=== PATIENT | male | born 1980 | race Hispanic/Latino ===

== ENCOUNTER 2018-05-19 12:29 | Inpatient (IN) | payer SELFPAY ==
[~2018-05-19] VITALS: Ht 185.4 cm; Wt 85.0 kg
[~2018-05-19 12:29] MED LIST: BACTRIM DS1 TAB PO; CIPROFLOXACN500 MG PO; LORTAB 5-325 MG1 TAB PO; NO MEDS
[2018-05-19 13:24] LABS: HEMATOCRIT 36.5 % (39.0-50.0); IMMATURE GRANULOCYTES 0.5 % (0.0-5.0); MEAN CELL VOLUME 89.2 fL CALC (80.0-100.0); MEAN CORPUSCULAR HGB 29.3 pG CALC (26.0-32.0); MEAN CORPUSCULAR HGB CONC 32.9 g/L CALC (32.0-36.0); NEUT# 6.54 thou/uL (1.82-7.42); RED BLOOD COUNT 4.09 mill/uL (4.70-6.10); RED CELL DISTRI WIDTH 13.3 % (11.5-15.5)
[2018-05-19 13:28] LABS: INTERNATIONAL NORMALIZED RATIO 1.1 RATIO (0.7-1.3); PROTHROMBIN TIME 11.4 SECONDS (9.0-12.5)
[2018-05-19 13:30] LABS: ALBUMIN 3.9 g/dL (3.2-5.0); ALKALINE PHOSPHATASE 61 u/l (38-126); ANION GAP 14 (6-22 (CALC)); BILIRUBIN, TOTAL 0.6 mg/dL (0.0-1.4); BUN 10 mg/dL (9-20); BUN/CREATININE RATIO 13 (12-20 (CALC)); CARBON DIOXIDE 29 mmol/l (22-30); CHLORIDE 95 mmol/l (95-108); CREATININE 0.8 mg/dL (0.7-1.3); ETHYL ALCOHOL 0 mg/dl (0-30); GFR > 60 ML/MIN (>=60 (CALC)); GFR FOR AFR.AMER. > 60 ML/MIN (>=60 (CALC)); POTASSIUM 3.9 mmol/l (3.5-5.1); SGOT/AST 37 u/l (17-59); SODIUM 134 mmol/l (137-146); TOTAL PROTEIN 7.4 g/dL (6.3-8.2)
[2018-05-19 14:54] LABS: URINE BLOOD DIPSTICK NEGATIVE (NEGATIVE); URINE COLOR YELLOW; URINE GLUCOSE - DIPSTICK NEGATIVE (NEGATIVE); URINE KETONE TRACE mg/dL (NEGATIVE); URINE LEUK ESTERASE NEGATIVE (NEGATIVE); URINE NITRITE - DIPSTICK NEGATIVE (Negative); URINE PH 6.5 (4.5-8.0); URINE PROTEIN - DIPSTICK NEGATIVE (NEG-TRACE); URINE UROBILINOGEN - DIPSTICK >=8.0 E.U./dL (0.2)
[2018-05-19 14:58] LABS: BARBITURATES NEGATIVE (NEGATIVE); COCAINE NEGATIVE (NEGATIVE); METHADONE NEGATIVE (NEGATIVE); OXCYCODONE POSITIVE (NEGATIVE); TETRAHYDROCANNABIONOL POSITIVE (NEGATIVE); TRICYLIC ANTIDEPRESSANTS NEGATIVE (NEGATIVE)
[2018-05-19 15:01] LABS: URINE BILIRUBIN - DIPSTICK NEGATIVE (NEGATIVE)
[2018-05-19 16:40] VITALS: BP 127/70
[2018-05-19 19:40] VITALS: BP 103/54
[2018-05-20 04:20] VITALS: BP 127/62
[2018-05-20 04:51] LABS: HEMATOCRIT 35.4 % (39.0-50.0); HEMOGLOBIN 11.6 g/dl (14.0-18.0); IMMATURE GRANULOCYTES 0.4 % (0.0-5.0); MEAN CELL VOLUME 89.4 fL CALC (80.0-100.0); MEAN CORPUSCULAR HGB 29.3 pG CALC (26.0-32.0); MEAN CORPUSCULAR HGB CONC 32.8 g/L CALC (32.0-36.0); NEUT# 4.25 thou/uL (1.82-7.42); RED BLOOD COUNT 3.96 mill/uL (4.70-6.10); RED CELL DISTRI WIDTH 13.5 % (11.5-15.5)
[2018-05-20 05:10] LABS: ALKALINE PHOSPHATASE 89 u/l (38-126); AMYLASE < 30 u/l (30-110); ANION GAP 11 (6-22 (CALC)); BILIRUBIN, TOTAL 0.7 mg/dL (0.0-1.4); BUN 8 mg/dL (9-20); BUN/CREATININE RATIO 11 (12-20 (CALC)); CARBON DIOXIDE 29 mmol/l (22-30); CHLORIDE 102 mmol/l (95-108); CREATININE 0.7 mg/dL (0.7-1.3); GFR > 60 ML/MIN (>=60 (CALC)); GFR FOR AFR.AMER. > 60 ML/MIN (>=60 (CALC)); LIPASE 53 u/l (23-300); MAGNESIUM 1.8 mg/dL (1.6-2.3); POTASSIUM 3.4 mmol/l (3.5-5.1); SGOT/AST 60 u/l (17-59); SODIUM 138 mmol/l (137-146)
[2018-05-20 05:15] LABS: ALBUMIN 3.1 g/dL (3.2-5.0)
[2018-05-20 08:30] VITALS: BP 129/74
[2018-05-20 15:30] VITALS: BP 120/77
[2018-05-20 19:35] VITALS: BP 133/78
[2018-05-21 05:08] LABS: HEMATOCRIT 33.9 % (39.0-50.0); HEMOGLOBIN 11.3 g/dl (14.0-18.0); IMMATURE GRANULOCYTES 0.5 % (0.0-5.0); MEAN CELL VOLUME 87.8 fL CALC (80.0-100.0); MEAN CORPUSCULAR HGB 29.3 pG CALC (26.0-32.0); MEAN CORPUSCULAR HGB CONC 33.3 g/L CALC (32.0-36.0); NEUT# 5.59 thou/uL (1.82-7.42); RED BLOOD COUNT 3.86 mill/uL (4.70-6.10); RED CELL DISTRI WIDTH 13.4 % (11.5-15.5)
[2018-05-21 05:31] LABS: ALBUMIN 2.9 g/dL (3.2-5.0); ALKALINE PHOSPHATASE 120 u/l (38-126); ANION GAP 11 (6-22 (CALC)); BILIRUBIN, TOTAL 0.3 mg/dL (0.0-1.4); BUN 8 mg/dL (9-20); BUN/CREATININE RATIO 13 (12-20 (CALC)); CARBON DIOXIDE 26 mmol/l (22-30); CHLORIDE 108 mmol/l (95-108); CREATININE 0.6 mg/dL (0.7-1.3); GFR > 60 ML/MIN (>=60 (CALC)); GFR FOR AFR.AMER. > 60 ML/MIN (>=60 (CALC)); MAGNESIUM 1.7 mg/dL (1.6-2.3); POTASSIUM 3.7 mmol/l (3.5-5.1); SGOT/AST 54 u/l (17-59); SODIUM 141 mmol/l (137-146); TOTAL PROTEIN 5.7 g/dL (6.3-8.2)
[2018-05-21 08:33] VITALS: BP 138/86
[2018-05-21 17:00] VITALS: BP 152/62
[2018-05-21 19:00] VITALS: BP 149/83
[2018-05-22 03:10] VITALS: BP 149/93
[2018-05-22 05:47] LABS: HEMATOCRIT 36.8 % (39.0-50.0); HEMOGLOBIN 12.1 g/dl (14.0-18.0); IMMATURE GRANULOCYTES 0.5 % (0.0-5.0); MEAN CELL VOLUME 88.2 fL CALC (80.0-100.0); MEAN CORPUSCULAR HGB CONC 32.9 g/L CALC (32.0-36.0); NEUT# 5.95 thou/uL (1.82-7.42); RED BLOOD COUNT 4.17 mill/uL (4.70-6.10); RED CELL DISTRI WIDTH 13.6 % (11.5-15.5)
[2018-05-22 06:06] LABS: ALBUMIN 3.1 g/dL (3.2-5.0); ALKALINE PHOSPHATASE 101 u/l (38-126); AMYLASE 42 u/l (30-110); BILIRUBIN, TOTAL 0.2 mg/dL (0.0-1.4); BUN 8 mg/dL (9-20); BUN/CREATININE RATIO 14 (12-20 (CALC)); CARBON DIOXIDE 27 mmol/l (22-30); CREATININE 0.6 mg/dL (0.7-1.3); GFR > 60 ML/MIN (>=60 (CALC)); GFR FOR AFR.AMER. > 60 ML/MIN (>=60 (CALC)); LIPASE 116 u/l (23-300); MAGNESIUM 1.6 mg/dL (1.6-2.3); POTASSIUM 3.5 mmol/l (3.5-5.1); SGOT/AST 28 u/l (17-59); SODIUM 142 mmol/l (137-146); TOTAL PROTEIN 6.1 g/dL (6.3-8.2)
[2018-05-22 06:07] LABS: ANION GAP 13 (6-22 (CALC)); CHLORIDE 106 mmol/l (95-108)
[2018-05-22 07:35] VITALS: BP 152/78
== END 2018-05-22 14:35 | disposition short-term general hospital (02) | DRG 871 ==
LOC: ED 12:29 → ED-I 13:39 → ED 13:50 → MS2 13:51
PROVIDERS: Family Medicine; ADMIT Internal Medicine Nephrology; ATTEND Internal Medicine Nephrology
DX: A41.01 Sepsis due to Methicillin susceptible Staphylococcus aureus (principal); I33.0 Acute and subacute infective endocarditis; R65.20 Severe sepsis without septic shock; I10 Essential (primary) hypertension; F11.10 Opioid abuse, uncomplicated; F17.210 Nicotine dependence, cigarettes, uncomplicated; I95.9 Hypotension, unspecified; I08.3 Combined rheumatic disorders of mitral, aortic and tricuspid valves
CPT/HCPCS: J1650; J2060; J3370

== ENCOUNTER 2018-08-30 22:59 | Emergency (ER) | payer SELFPAY ==
[~2018-08-30] VITALS: Ht 185.4 cm; Wt 104.0 kg
[2018-08-31] MEDS ORDERED: KEFLEX500 M1 PO (00:53)
[2018-08-31 01:15] VITALS: BP 130/78
== END 2018-08-31 01:15 | disposition home or self-care (01) | DRG 603 ==
LOC: ED 22:59
DX: L03.113 Cellulitis of right upper limb (principal); I10 Essential (primary) hypertension; F17.210 Nicotine dependence, cigarettes, uncomplicated

== ENCOUNTER 2019-01-02 15:28 | Emergency (ER) | payer SELFPAY ==
[~2019-01-02] VITALS: Ht 185.4 cm; Wt 91.0 kg
[~2019-01-02 15:28] MED LIST changes: +KEFLEX500 M1 PO
[2019-01-02 16:36] LABS: BUN 15 mg/dL (9-20); BUN/CREATININE RATIO 20 (12-20 (CALC)); CARBON DIOXIDE 28 mmol/l (22-30); CREATININE 0.7 mg/dL (0.7-1.3); GFR > 60 ML/MIN (>=60 (CALC)); GFR FOR AFR.AMER. > 60 ML/MIN (>=60 (CALC))
[2019-01-02 16:44] LABS: ANION GAP 17 (6-22 (CALC)); CHLORIDE 91 mmol/l (95-108); POTASSIUM 5.1 mmol/l (3.5-5.1); SODIUM 131 mmol/l (137-146)
[2019-01-02 16:57] LABS: HEMATOCRIT 32.2 % (39.0-50.0); HEMOGLOBIN 10.5 g/dl (14.0-18.0); MEAN CELL VOLUME 84.7 fL CALC (80.0-100.0); MEAN CORPUSCULAR HGB 27.6 pG CALC (26.0-32.0); MEAN CORPUSCULAR HGB CONC 32.6 g/L CALC (32.0-36.0); NEUT# 17.2 thou/uL (1.82-7.42); RED BLOOD COUNT 3.8 mill/uL (4.70-6.10); RED CELL DISTRI WIDTH 13.8 % (11.5-15.5)
[2019-01-02 17:45] LABS: BARBITURATES NEGATIVE (NEGATIVE); COCAINE NEGATIVE (NEGATIVE); METHADONE NEGATIVE (NEGATIVE); OXCYCODONE POSITIVE (NEGATIVE); TETRAHYDROCANNABIONOL NEGATIVE (NEGATIVE); TRICYLIC ANTIDEPRESSANTS NEGATIVE (NEGATIVE)
[2019-01-02 20:57] VITALS: BP 108/78
--- NOTE | 2019-01-04 09:07 | NUR ---
Preliminary blood culture results of 2/2 sets growing gram positive cocci called to nurse Karley at [facility]. Will call final results when available.
== END 2019-01-02 21:07 | disposition short-term general hospital (02) | DRG 552 ==
LOC: ED 15:28
PROVIDERS: Family Medicine
PROC: 009U3ZX Drainage of Spinal Canal, Percutaneous Approach, Diagnostic (ICD-10-PCS; principal; 2019-01-02)
DX: M54.2 Cervicalgia (principal); R51 Headache; R50.9 Fever, unspecified; J98.4 Other disorders of lung; I10 Essential (primary) hypertension; F17.210 Nicotine dependence, cigarettes, uncomplicated; F19.90 Other psychoactive substance use, unspecified, uncomplicated
CPT/HCPCS: Q9967

== ENCOUNTER 2019-06-23 | Emergency (ER) | payer SELFPAY | END 2019-06-23 19:30 | disposition home or self-care (01) | DRG 605 | DX: S61.215A Laceration without foreign body of left ring finger without damage to nail, initial encounter (principal); I10 Essential (primary) hypertension; F17.210 Nicotine dependence, cigarettes, uncomplicated; W54.1XXA Struck by dog, initial encounter ==

== ENCOUNTER 2020-09-16 13:43 | Observation (INO) | payer SELFPAY ==
[~2020-09-16] VITALS: Ht 185.4 cm; Wt 85.0 kg
--- NOTE | 2020-09-16 14:02 | NUR ---
CARRIED OVER BY EMS
[2020-09-16 14:14] LABS: IMMATURE GRANULOCYTES 0.2 % (0.0-5.0); MEAN CORPUSCULAR HGB 27.8 pG CALC (26.0-32.0); MEAN CORPUSCULAR HGB CONC 30.5 g/dL CAL (32.0-36.0); NEUT# 2.54 thou/uL (1.82-7.42); RED BLOOD COUNT 4.31 mill/uL (4.70-6.10); RED CELL DISTRI WIDTH 13.8 % (11.5-15.5)
[2020-09-16 14:17] LABS: HEMATOCRIT 39.4 % (39.0-50.0); MEAN CELL VOLUME 91.4 fL CALC (80.0-100.0)
[2020-09-16 14:20] LABS: URINE BILIRUBIN - DIPSTICK NEGATIVE (NEGATIVE); URINE BLOOD DIPSTICK NEGATIVE (NEGATIVE); URINE COLOR YELLOW; URINE GLUCOSE - DIPSTICK NEGATIVE (NEGATIVE); URINE KETONE NEGATIVE (NEGATIVE); URINE LEUK ESTERASE NEGATIVE (NEGATIVE); URINE PH 7.5 (4.5-8.0); URINE PROTEIN - DIPSTICK NEGATIVE (NEG-TRACE); URINE UROBILINOGEN - DIPSTICK 0.2 E.U./dL (0.2)
[2020-09-16 14:21] LABS: URINE NITRITE - DIPSTICK NEGATIVE (Negative)
[2020-09-16 14:34] LABS: ALBUMIN 3.6 g/dL (3.2-5.0); ALKALINE PHOSPHATASE 53 u/l (38-126); BUN 9 mg/dL (9-20); BUN/CREATININE RATIO 9 (12-20 (CALC)); CARBON DIOXIDE 26 mmol/l (22-30); CREATININE 1.1 mg/dL (0.7-1.3); GFR > 60 ML/MIN (>=60 (CALC)); GFR FOR AFR.AMER. > 60 ML/MIN (>=60 (CALC)); SODIUM 136 mmol/l (137-146); TOTAL PROTEIN 7.2 g/dL (6.3-8.2)
[2020-09-16 14:35] LABS: ANION GAP 11 (6-22 (CALC)); BILIRUBIN, TOTAL 0.3 mg/dL (0.0-1.4); CHLORIDE 103 mmol/l (95-108); POTASSIUM 3.9 mmol/l (3.5-5.1)
[2020-09-16 14:36] LABS: SGOT/AST 70 u/l (17-59)
[2020-09-16 14:46] LABS: MYOGLOBIN 68 ng/mL (0 - 121)
--- NOTE | 2020-09-16 15:02 | NUR ---
PATIENT RESTING AWAITING DISPOSITION. PATIENT CALM BUT AROUSABLE AND MAKES UNINTELLIGBLE SOUNDS THEN IMMEDIATELY FALL INTO A OBTUNDED STATE. NO TIFIED OF PATIENT STATUS
--- NOTE | 2020-09-16 15:15 | NUR ---
PATIENT AWAKE ALERT BUT STILL DROWSY. PATIENT ANSWERING QUESTIONS AND DOES NOT REMEMBER EVENTS PRIOR TO WAKING UP IN THE ER. RESTRAINTS REMOVED AND MD NOTIFIED OF PATIENTS STATUS
--- NOTE | 2020-09-16 16:15 | NUR ---
Patient resting awaiting disposition. patient denies any pain or discomfort at this time
--- NOTE | 2020-09-16 17:09 | NUR ---
report called to ray in icu
[2020-09-16 17:15] VITALS: BP 99/54
--- NOTE | 2020-09-16 17:15 | NUR ---
Patient transported to icu
--- NOTE | 2020-09-16 17:30 | NUR ---
PATIENT ARRIVED FROM ED AT THIS TIME. THIS NURSE WENT TO GO AND ADMIT PATIENT AND PATIENT STATED "I'M NOT STAYING HERE I WANT TO LEAVE". PATIENT REQUESTED TO MAKE A PHONE CALL AT THIS TIME AND PATIENT'S FAMILY REQUESTED TO SPEAK TO THIS NURSE AND FAMILY MEMBER STATED THAT SHE WOULD BE HERE IN 10 MINS. TO PICK PATIENT UP AND TO GET HIM READY". ADVISED PATIENT OF HIS RIGHTS TO LEAVE HOWEVER HE WOULD NEED TO SIGN AN AMA FORM AND HE STATED THAT IS FINE AND PATIENT DID SIGN FORM PATIENT WAS ADVISED ON THE RISK AND BENEFITS AND PATINET VERBALIZED UNDERSTANDING AND STATE "I AM LEAVING" PATIENTS IV REMOVED AT THIS TIME AND PATIENT WAS RELEASE. DR. PAGE CALLED AND NOTIFIED OF PATIENTS DEPARTURE.
--- NOTE | 2020-09-16 17:35 | NUR ---
Patient decides to leave AMA. Multiple attempts made to ecourage patient to remain here for continued treatment. Explained to patient all risks of leaving against medical advice including . Pt verbalized understanding of all risks. Pt also encouraged to return to [facility] at any time, especially if symptoms continue or become worse. Pt verbalized understanding. SEE PREVIOUS NOTE.
--- NOTE | 2020-09-18 08:34 | NUR ---
PRELIM BLOOD CX RESULTS SHOW GRAM POSITIVE COCCI IN 2/4 VIALS, SAME SET. REPORTED TO DR LOPEZ. TRIED TO CALL PT, WAS TOLD WRONG NUMBER...ITS THE SAME NUMBER FOR NEXT OF [facility]IN [facility]. WILL F/U WITH FINAL RESULTS
--- NOTE | 2020-09-19 13:47 | NUR ---
FINAL BLOOD CULTURE RESULTS SHOW STAPHYLOCOCCUS HOMINIS IN 2/4 VIALS (SAME SET). PATIENT LEFT AMA AND PHONE NUMBER ON FILE DOES NOT WORK.
== END 2020-09-16 17:35 | disposition left against medical advice (07) | DRG 894 ==
LOC: ED 13:43 → ED-I 16:00 → ED 16:16 → ICU 16:17
PROVIDERS: Emergency Medicine; ADMIT Internal Medicine; ATTEND Internal Medicine
DX: F16.10 Hallucinogen abuse, uncomplicated (principal); R73.9 Hyperglycemia, unspecified; I10 Essential (primary) hypertension; F17.200 Nicotine dependence, unspecified, uncomplicated; Z78.1 Physical restraint status; Z20.822 Contact with and (suspected) exposure to COVID-19

== ENCOUNTER 2020-09-23 19:36 | Emergency (ER) | payer SELFPAY ==
[~2020-09-23] VITALS: Ht 185.4 cm; Wt 100.0 kg
[2020-09-23 20:39] LABS: HEMATOCRIT 41.8 % (39.0-50.0); HEMOGLOBIN 13.4 g/dl (14.0-18.0); IMMATURE GRANULOCYTES 3.4 % (0.0-5.0); MEAN CELL VOLUME 86.5 fL CALC (80.0-100.0); MEAN CORPUSCULAR HGB 27.7 pG CALC (26.0-32.0); MEAN CORPUSCULAR HGB CONC 32.1 g/dL CAL (32.0-36.0); NEUT# 15.94 thou/uL (1.82-7.42); RED BLOOD COUNT 4.83 mill/uL (4.70-6.10); RED CELL DISTRI WIDTH 13.6 % (11.5-15.5)
[2020-09-23 20:53] LABS: URINE BLOOD DIPSTICK NEGATIVE (NEGATIVE); URINE COLOR YELLOW; URINE GLUCOSE - DIPSTICK NEGATIVE (NEGATIVE); URINE KETONE NEGATIVE (NEGATIVE); URINE LEUK ESTERASE NEGATIVE (NEGATIVE); URINE PH 5.5 (4.5-8.0); URINE PROTEIN - DIPSTICK 100 mg/dL (NEG-TRACE); URINE SPECIFIC GRAVITY >=1.030
[2020-09-23 20:55] LABS: URINE BILIRUBIN - DIPSTICK SMALL (NEGATIVE); URINE NITRITE - DIPSTICK NEGATIVE (Negative)
[2020-09-23 20:58] LABS: ALBUMIN 3.3 g/dL (3.2-5.0); ANION GAP 15 (6-22 (CALC)); BUN 15 mg/dL (9-20); BUN/CREATININE RATIO 19 (12-20 (CALC)); CARBON DIOXIDE 29 mmol/l (22-30); CHLORIDE 92 mmol/l (95-108); CREATININE 0.8 mg/dL (0.7-1.3); GFR > 60 ML/MIN (>=60 (CALC)); GFR FOR AFR.AMER. > 60 ML/MIN (>=60 (CALC)); POTASSIUM 4.6 mmol/l (3.5-5.1); SGOT/AST 28 u/l (17-59); SODIUM 132 mmol/l (137-146)
[2020-09-23 21:02] LABS: ALKALINE PHOSPHATASE 107 u/l (38-126); BILIRUBIN, TOTAL 0.8 mg/dL (0.0-1.4)
[2020-09-24 01:26] VITALS: BP 169/76
--- NOTE | 2020-09-25 07:17 | NUR ---
PRELIMINARY CULTURE RESULTS CALLED TO [facility] AND FAXED TO [phone]
== END 2020-09-24 01:26 | disposition short-term general hospital (02) | DRG 176 ==
LOC: ED 19:36
PROVIDERS: Emergency Medicine
DX: I26.90 Septic pulmonary embolism without acute cor pulmonale (principal); L02.213 Cutaneous abscess of chest wall; I10 Essential (primary) hypertension; F17.200 Nicotine dependence, unspecified, uncomplicated; F19.10 Other psychoactive substance abuse, uncomplicated

== ENCOUNTER 2021-02-26 19:31 | Observation (INO) | payer OTHER ==
[~2021-02-26] VITALS: Ht 185.4 cm; Wt 90.5 kg
--- NOTE | 2021-02-26 20:22 | NUR ---
PT AMBULATORY TO ROOM 3 FOR TRIAGE.
[2021-02-26 22:06] LABS: IMMATURE GRANULOCYTES 0.7 % (0.0-5.0); MEAN CORPUSCULAR HGB CONC 33.3 g/dL CAL (32.0-36.0); NEUT# 9.95 thou/uL (1.82-7.42); RED BLOOD COUNT 3.71 mill/uL (4.70-6.10); RED CELL DISTRI WIDTH 15.4 % (11.5-15.5)
[2021-02-26 22:23] LABS: ALKALINE PHOSPHATASE 107 u/l (38-126); ANION GAP 12 (6-22 (CALC)); BUN 17 mg/dL (9-20); BUN/CREATININE RATIO 14 (12-20 (CALC)); CARBON DIOXIDE 27 mmol/l (22-30); CHLORIDE 94 mmol/l (95-108); CREATININE 1.3 mg/dL (0.7-1.3); ETHYL ALCOHOL 0 mg/dl (0-30); GFR > 60 ML/MIN (>=60 (CALC)); GFR FOR AFR.AMER. > 60 ML/MIN (>=60 (CALC)); MEAN CELL VOLUME 80.9 fL CALC (80.0-100.0); SGOT/AST 28 u/l (17-59); SODIUM 129 mmol/l (137-146); TOTAL PROTEIN 6.6 g/dL (6.3-8.2)
[2021-02-26 22:26] LABS: POTASSIUM 3.6 mmol/l (3.5-5.1)
--- NOTE | 2021-02-27 03:03 | NUR ---
PT RESTING. STATES HE FEELS MUCH BETTER. NAD.
--- NOTE | 2021-02-27 03:03 | NUR ---
REPORT TO SAPNA/NURSE/MED-SURG
--- NOTE | 2021-02-27 03:11 | NUR ---
TO FLOOR VIA W/C. BELONGINGS LIST COMPLETED.
[2021-02-27 03:13] VITALS: BP 74/39
--- NOTE | 2021-02-27 03:13 | NUR ---
PATIENT ADMITTED TO [facility] VIA TO ROOM 274. TRANSFERRED TO ROOM BED WITH SUPERVISION. ASSESSMENT DONE AT THIS TIME. PATIENT ALERT AND ORIENTED. ABLE TO MAKE NEEDS KNOWN. NO COMPLAINTS AT THIS TIME. PATIENT ORIENTED TO ROOM AND CALL LIGHT.
[2021-02-27 04:00] VITALS: BP 106/86
[2021-02-27 05:37] LABS: HEMATOCRIT 27.3 % (39.0-50.0); IMMATURE GRANULOCYTES 0.9 % (0.0-5.0); MEAN CORPUSCULAR HGB 26.7 pG CALC (26.0-32.0); NEUT# 6.78 thou/uL (1.82-7.42); RED BLOOD COUNT 3.37 mill/uL (4.70-6.10); RED CELL DISTRI WIDTH 15.2 % (11.5-15.5)
[2021-02-27 06:11] LABS: ALBUMIN 2.5 g/dL (3.2-5.0); ALKALINE PHOSPHATASE 82 u/l (38-126); ANION GAP 12 (6-22 (CALC)); BILIRUBIN, TOTAL 0.8 mg/dL (0.0-1.4); BUN 21 mg/dL (9-20); BUN/CREATININE RATIO 14 (12-20 (CALC)); CARBON DIOXIDE 25 mmol/l (22-30); CHLORIDE 96 mmol/l (95-108); CREATININE 1.5 mg/dL (0.7-1.3); GFR 52 ML/MIN (>=60 (CALC)); GFR FOR AFR.AMER. > 60 ML/MIN (>=60 (CALC)); POTASSIUM 3.8 mmol/l (3.5-5.1); SGOT/AST 26 u/l (17-59); SODIUM 130 mmol/l (137-146); TOTAL PROTEIN 5.7 g/dL (6.3-8.2)
[2021-02-27 07:36] VITALS: BP 84/44
--- NOTE | 2021-02-27 08:00 | NUR ---
PT RESTLESS IN BED. MD NOTIFIED AWAITING ORDERS. PT STATES THEY TAKE UNPRESCRIBED PO DILAUDID AT HOME. THEY ARE A&O X3, HEART SOUNDS ARE REGULAR, LUNG SOUNDS ARE CLEAR UPPER/ LOWER LOBES, BOWEL SOUNDS ACTIVE X4, RADIAL AND PEDAL PULSES ARE STRONG EQUALLY BILATERALLY. SWOLLEN HANDS BILATERALLY AND WARM TO TOUCH. CALL LIGHT IS WITHIN REACH
--- NOTE | 2021-02-27 09:35 | NUR ---
DR. DENNY AND DEEP BORDEN DISCUSSING POC WITH PT.
[2021-02-27] MEDS ORDERED: FLUOXETINE40 MG PO (10:00)
[2021-02-27] MEDS ORDERED: MINIPRESS1 MG PO (10:01)
[2021-02-27] MEDS ORDERED: AMLODIPINE BESY10 MG PO (10:02)
[2021-02-27] MEDS ORDERED: SEROQUEL400 MG PO (10:03)
--- NOTE | 2021-02-27 10:52 | NUR ---
WENT DOWN TO PT ROOM TO REASSESS PT AFTER GIVING TYNENOL PO. PT NOT IN ROOM, GOWN ON THE FLOOR, IV SITE ON FLOOR, CATHETER INTACT. DEEP BORDEN NOTIFIED.
--- NOTE | 2021-02-27 11:03 | NUR ---
S: KITTY PADILLA is a 40 M who presents with cellulitis. He has a history of arthritis, HTN, endocarditis, IVDU. All medications in patient's chart were reviewed. O: VS: BP 84/44 mmHg, P 81 bpm, RR 20 breaths/min, T 97.8 F W 90.5 kg, HT 185.42 cm, Scr= 1.5 mg/dl ,CrCl= 83 ml/min A: Blood culture is pending P: Patient is on Zosyn 3.375 gm IV Q6H Vancomycin ordered for pharmacy to dose. Start Vancomycin 1 g IV Q12H @ 0030 + 1230. Vancomycin trough is drawn before the 4th dose on 02/28/21 @ 1200. Vancomycin goal trough is between 10-15 mcg/ml. Pharmacy will follow and or advise on antibiotics use as needed.
--- NOTE | 2021-02-27 12:43 | NUR ---
ATTEMPTED TO CALL PT REGARDING MEDICATIONS PRESCIBED BUT NO ANSWER AT THIS TIME.
--- NOTE | 2021-02-28 08:30 | NUR ---
Called blood culture results growing gram positive cocci in 1/3 vails to Jovi Connolly APRN. Advised to have pt return to ED for evaluation and treatment. LM for pt to return call to pharmacy DIANNA.
--- NOTE | 2021-02-28 10:16 | NUR ---
Attempted to contact pt via phone number listed again with no answer. Will send certified letter notifying patient to return to the ED due to blood culture results.
--- NOTE | 2021-02-28 13:18 | NUR ---
Pt returned phone call. Advised pt of blood culture results and need to return to the ED for evaluation and treatment. Stressed that bacteria growing in his blood could represent a very serious infection that requires IV antibiotics. Pt verbalized understanding. Pt states he has been sleeping since leaving AMA yesterday and is not taking any antibiotics at this time. Pt concerned about Suboxone rx. Advised him to bring in the Suboxone with him so we could continue his therapy in case he is admitted. Pt states he will come to the ER in an hour or so.
--- NOTE | 2021-03-01 10:49 | NUR ---
Final blood culture results of Group A Strep growing in 1/3 vials called to Jovi Connolly APRN. Pt was advised yesterday to report to ED immediately for evaluation and treatment, however pt has not returned yet.
--- NOTE | 2021-03-02 15:09 | NUR ---
Called in 2 new rxs for pt to [facility] pharmacy. Penicillin VK 500 mg po q6h x 14 days and clindamycin 450 mg po tid x 5 days. Contacted pt by phone to notify of final blood culture results. Advised pt that he has a very serious infection and that if he does not return to the ED to receive IV antibiotics he risks losing his hands, arms, and life. Pt said he will return to the ED "in a few hours." Told pt we did call in 2 new antibiotics to [facility], however they will not be enough to treat his infection; he must get IV antibiotics. Pt verbalized understanding.
== END 2021-02-27 10:52 | disposition left against medical advice (07) ==
LOC: ED 19:31 → ED-I 23:28 → ED 02-27 00:08 → MS2 02-27 00:09
PROVIDERS: ADMIT Internal Medicine; ATTEND Internal Medicine
DX: A41.9 Sepsis, unspecified organism (principal); L03.114 Cellulitis of left upper limb; L03.113 Cellulitis of right upper limb; E87.2 Acidosis; E87.1 Hypo-osmolality and hyponatremia; I10 Essential (primary) hypertension; F17.200 Nicotine dependence, unspecified, uncomplicated; F15.10 Other stimulant abuse, uncomplicated; F11.10 Opioid abuse, uncomplicated; Z86.14 Personal history of Methicillin resistant Staphylococcus aureus infection; Z20.822 Contact with and (suspected) exposure to COVID-19
CPT/HCPCS: G0378

== ENCOUNTER 2021-03-03 01:53 | Emergency (ER) | payer OTHER ==
[~2021-03-03] VITALS: Ht 185.4 cm; Wt 100.0 kg
[~2021-03-03 01:53] MED LIST changes: +AMLODIPINE BESY10 MG PO; +FLUOXETINE40 MG PO; +MINIPRESS1 MG PO; +SEROQUEL400 MG PO
[2021-03-03] MEDS ORDERED: DOXYCYCL HYC100 MG PO (02:42)
[2021-03-03 03:00] VITALS: BP 141/90
--- NOTE | 2021-03-03 09:15 | NUR ---
SEE NOTES FROM PREVIOUS VISIT (02/26-02/27). PT BLOOD CX SHOWS GROUP A STREP, HE IS AN IV DRUG USER AND HAS HX OF ENDOCARDITIS. PT WAS INSTRUCTED 03/02 TO RETURN TO ER DIANNA HE NEEDS IV ABX AND FURTHER WORK-UP TO R/O ENDOCARDITIS. PT RETURNED TO ER AROUND 0200, WAS EVALUATED AND SENT HOME WITH RX FOR DOXYCYCLINE. NOTE REVIEWED WITH DR LOPEZ THIS MORNING THIS IS INAPPROPRIATE TREATMENT 1, FOR BACTEREMIA, AND 2, FOR GROUP A STREP. DR LOPEZ REQUESTED THAT I CALL PT AND HAVE HIM RETURN. @ 0915, I CALLED AND SPOKE WITH PT. I EXPLAINED THAT I SEE HE RETURNED BUT WAS SENT HOME AND THAT ER DR ON [place] NOW ASKED FOR HIM TO RETURN TO ER. I EXPLAINED AGAIN THAT HE NEEDS IV ABX AND FURTHER EVALUATION. PT WAS VERY APPRECIATIVE OF CALL/CONCERN AND SAID HE'LL "BE RIGHT HERE". I WILL F/U IF PT DOESNT RETURN TO ER THIS MORNING.
--- NOTE | 2021-03-03 09:28 | NUR ---
CALLED [facility], CANCELLED RX FOR DOXYCYCLINE. RX FOR CLINDAMYCIN AND PENVK ARE READY. SEE PREVIOUS NOTES.
--- NOTE | 2021-03-03 14:19 | NUR ---
SEE PREVIOUS NOTES, PT STILL HAS NOT RETURNED TO ER. CALLED PT, LEFT MESSAGE STRESSING IMPORTANCE OF RETURNING TO ER.
== END 2021-03-03 03:00 | disposition home or self-care (01) ==
LOC: ED 01:53
DX: R78.81 Bacteremia (principal); F19.10 Other psychoactive substance abuse, uncomplicated; L53.8 Other specified erythematous conditions; I10 Essential (primary) hypertension; F17.200 Nicotine dependence, unspecified, uncomplicated; T36.4X6A Underdosing of tetracyclines, initial encounter; Z91.128 Patient's intentional underdosing of medication regimen for other reason
CPT/HCPCS: J0561

== ENCOUNTER 2021-03-03 16:36 | Emergency (ER) | payer OTHER ==
[~2021-03-03] VITALS: Ht 185.4 cm; Wt 64.0 kg
[~2021-03-03 16:36] MED LIST changes: +DOXYCYCL HYC100 MG PO
[2021-03-03 18:01] VITALS: BP 167/90
== END 2021-03-03 18:02 | disposition left against medical advice (07) ==
LOC: ED 16:36
DX: A41.9 Sepsis, unspecified organism (principal); L03.114 Cellulitis of left upper limb; I10 Essential (primary) hypertension; F17.200 Nicotine dependence, unspecified, uncomplicated; Z91.19 Patient's noncompliance with other medical treatment and regimen

== ENCOUNTER 2022-10-16 13:53 | Emergency (ER) | payer SELFPAY ==
[~2022-10-16] VITALS: Ht 185.4 cm; Wt 63.6 kg
[2022-10-16 14:06] VITALS: BP 139/86
[2022-10-16 14:31] LABS: BASO% 0.6 % (0-3); EOS% 2.5 % (0-8); IMMATURE GRANULOCYTES 0.1 % (0.0-5.0); LYMPH% 35.8 % (15-41); MEAN CORPUSCULAR HGB 29.6 pG CALC (26.0-32.0); MEAN CORPUSCULAR HGB CONC 32.6 g/dL CAL (32.0-36.0); MONO% 7.2 % (2-13); NEUT# 5.08 thou/uL (1.82-7.42); NEUT% 53.8 % (42-76); RED BLOOD COUNT 4.59 mill/uL (4.70-6.10)
[2022-10-16 14:33] LABS: HEMATOCRIT 41.7 % (39.0-50.0); HEMOGLOBIN 13.6 g/dl (14.0-18.0); MEAN CELL VOLUME 90.8 fL CALC (80.0-100.0)
[2022-10-16 14:43] LABS: ALKALINE PHOSPHATASE 50 u/l (38-126); BILIRUBIN, TOTAL 1.1 mg/dL (0.2-1.3); BUN 17 mg/dL (9-20); BUN/CREATININE RATIO 12 (12-20 (CALC)); CHLORIDE 98 mmol/l (95-108); CREATININE 1.5 mg/dL (0.7-1.3); ETHYL ALCOHOL 0 mg/dl (0-30); GFR FOR AFR.AMER. > 60 ML/MIN (>=60 (CALC)); GFR OTHER RACES 51 ML/MIN (>=60 (CALC)); POTASSIUM 3.5 mmol/l (3.5-5.1)
[2022-10-16 14:47] LABS: ALBUMIN 4.3 g/dL (3.2-5.0); ANION GAP 11 (6-22 (CALC)); CARBON DIOXIDE 33 mmol/l (22-30); SGOT/AST 59 u/l (17-59); SODIUM 138 mmol/l (137-146); TOTAL PROTEIN 7.9 g/dL (6.3-8.2)
[2022-10-16 15:00] VITALS: BP 156/83
[2022-10-16 15:30] VITALS: BP 135/78
== END 2022-10-16 16:04 | disposition home or self-care (01) | DRG 103 ==
LOC: ED 13:53
PROVIDERS: Family Medicine
DX: R51.9 Headache, unspecified (principal); I10 Essential (primary) hypertension; F17.200 Nicotine dependence, unspecified, uncomplicated

== ENCOUNTER 2022-12-13 16:28 | Emergency (ER) | payer OTHER ==
[~2022-12-13] VITALS: Ht 185.4 cm; Wt 81.8 kg
[2022-12-13 16:38] VITALS: BP 133/84
[2022-12-13 16:45] VITALS: BP 127/82
[2022-12-13 17:01] VITALS: BP 118/74
[2022-12-13 17:54] LABS: EOS% 2.7 % (0-8); HEMOGLOBIN 12.6 g/dl (14.0-18.0); IMMATURE GRANULOCYTES 0.1 % (0.0-5.0); LYMPH% 25.2 % (15-41); MEAN CELL VOLUME 91.6 fL CALC (80.0-100.0); MEAN CORPUSCULAR HGB 30.4 pG CALC (26.0-32.0); MEAN CORPUSCULAR HGB CONC 33.2 g/dL CAL (32.0-36.0); MONO% 6.4 % (2-13); NEUT# 4.71 thou/uL (1.82-7.42); NEUT% 64.6 % (42-76); RED BLOOD COUNT 4.15 mill/uL (4.70-6.10); RED CELL DISTRI WIDTH 12.8 % (11.5-15.5)
[2022-12-13 18:09] LABS: ALBUMIN 3.8 g/dL (3.2-5.0); ALKALINE PHOSPHATASE 38 u/l (38-126); ANION GAP 12 (6-22 (CALC)); BUN 8 mg/dL (9-20); BUN/CREATININE RATIO 7 (12-20 (CALC)); CARBON DIOXIDE 32 mmol/l (22-30); CHLORIDE 91 mmol/l (95-108); CREATININE 1.2 mg/dL (0.7-1.3); GFR FOR AFR.AMER. > 60 ML/MIN (>=60 (CALC)); GFR OTHER RACES > 60 ML/MIN (>=60 (CALC)); SGOT/AST 61 u/l (17-59); SODIUM 132 mmol/l (137-146)
[2022-12-13 18:10] LABS: POTASSIUM 3.1 mmol/l (3.5-5.1)
[2022-12-13 20:03] VITALS: BP 111/81
== END 2022-12-13 20:10 | DRG 313 ==
LOC: ED 16:28
PROVIDERS: Family Medicine
DX: R07.89 Other chest pain (principal); I10 Essential (primary) hypertension; F17.200 Nicotine dependence, unspecified, uncomplicated; Z20.822 Contact with and (suspected) exposure to COVID-19